=== PATIENT | female | born 1960 | race Caucasian/White ===

== ENCOUNTER → 2018-12-30 | Outpatient (CLI) | payer OTHER ==
[2018-12-30 21:36] LABS: ANION GAP 11 (5-13); BLOOD UREA NITROGEN 16 mg/dl (7-20); CALCIUM 8.9 mg/dl (8.4-10.2); CARBON DIOXIDE 21 mmol/L (21-31); CHLORIDE 108 mmol/L (97-110); Estimated GFR > 60 mL/min (>60); GLUCOSE 100 mg/dl (70-220); POTASSIUM 3.6 mmol/L (3.5-5.1); SODIUM 140 mmol/L (135-144)
== END | disposition home or self-care (01) ==
LOC: LAB 15:47
DX: R07.9 Chest pain, unspecified (principal); R06.02 Shortness of breath; I50.9 Heart failure, unspecified
CPT/HCPCS: 80048

== ENCOUNTER → 2019-01-16 | Outpatient (CLI) | payer OTHER ==
[~2019-01-16] MED LIST: METOPROLOL 5 MG INJ; NITROGLYCERIN AEROSOL (4.9 GM)
[2019-01-16] MEDS: ATENOLOL 25 MG TAB PO (10:57)
[2019-01-16] MEDS: SOD CHLORIDE 0.9% 100 ML (12:31)
[2019-01-16] MEDS: IOHEXOL 100 ML (12:31)
== END | disposition home or self-care (01) ==
LOC: C/S 09:57
DX: I50.9 Heart failure, unspecified (principal); R06.02 Shortness of breath
CPT/HCPCS: 75571; 75571-59; 75574